=== PATIENT | male | born 1960 | race Caucasian/White ===

== ENCOUNTER 2019-05-01 14:02 | Observation (INO) | payer MEDICAID ==
[~2019-05-01 14:02] MED LIST: Insulin Aspart 100 Units/ML 3 ML Pen SUBCUT SCH
[2019-05-01] MEDS ORDERED: Sodium Chloride 0.9% 1,000 ML IV ONE (14:42)
--- NOTE | 2019-05-01 14:57 | EDM.PDOC ---
ED HPI GENERAL MEDICAL PROBLEM - General Chief Complaint: General Stated Complaint: CAN NOT STAY AWAKE Time Seen by Provider: 05/01/19 14:22 Source of Information: Reports: Patient, Family History Limitations: Reports: No Limitations - History of Present Illness INITIAL COMMENTS - FREE TEXT/NARRATIVE: HISTORY AND PHYSICAL: History of present illness: Patient is a 58-year-old male presents to the ED today with concerns of excessive tiredness and wanting to sleep often 1 month. states that they had just came from [facility] and had to stop every 5-6 hours so patient could now. states that this is very unusual for patient and he is usually able to get the trip done without having to stop. states she has noticed in the past month he has had increase in tiredness regardless of how much caffeine or supplements use to stay awake. states that she will be talking to him and that he will fall asleep. states he hasn't been wanting to go outside because he has been tired and needing to sleep all the time. Patient does complain of right hip pain and some calf cramping. states patient has a history of tardive dyskinesia due to chronic antipsychotic use for bipolar. Patient's medications have been changed many years ago but he has a resulting tremor in his right arm and some movements. Patient has a history of T2DM, medication controlled, deny any other health history or any other concerns at this time. Patient does admit to drinking 12 cans of Sprite a day and over the past 2 days has had an increase in caffeine intake due to the road trip. Patient denies fever, chills, chest pain, shortness of breath, or cough. Denies headache, neck stiff ness, change in vision, syncope, or near syncope. Denies nausea, vomiting, abdominal pain, diarrhea, constipation, or dysuria. Has not noted any blood in urine or stool. Patient has been eating and drinking appropriately. Review of systems: As per history of present illness and below otherwise all systems reviewed and negative. Past medical history: As per history of present illness and as reviewed below otherwise noncontributory. Surgical history: As per history of present illness and as reviewed below otherwise noncontributory. Social history: See social history for further information Family history: As per history of present illness and as reviewed below otherwise noncontributory. Physical exam: General: Patient is alert, oriented, and in no acute distress. Patient laying comfortably on exam table, occasionally falling asleep during conversation. HEENT: Atraumatic, normocephalic, pupils equal and reactive bilaterally, negative for conjunctival pallor or scleral icterus, mucous membranes dry, TMs normal bilaterally, throat clear, neck supple, nontender, trachea midline. No drooling or trismus noted. No meningeal signs. No hot potato voice noted. Lungs: Clear to auscultation, breath sounds equal bilaterally, chest nontender. Heart: Obese, S1S2, regular rate and rhythm without overt murmur Abdomen: Soft, nondistended, nontender. Negative for masses or hepatosplenomegaly. Negative for costovertebral tenderness. Pelvis: Stable nontender. Genitourinary: Deferred. Rectal: Deferred. Skin: Intact, warm, dry. No lesions or rashes noted. Extremities: Atraumatic, negative for cords or calf pain. Neurovascular unremarkable. Mild pain with ROM of right hip but intact strength and ROM Neuro: Awake, alert, oriented. Cranial nerves II through XII unremarkable. Cerebellum unremarkable. Motor and sensory unremarkable throughout. Exam nonfocal. Notes: Dr. Carmichael verbally involved in patient care. Dr. Pro consulted on patient will admit to observation. Voices understanding and is agreeable to plan of care. Denies any further questions or concerns at this time. Diagnostics: CBC, CMP, UA, troponin, EKG, head CT, chest x-ray, orthostatic vitals, CPK, hip XR, magnesium Therapeutics: Saline, K rider, K PO, Zofran Impression: Hypokalemia Dehydration Plan: 1. Admit to observation to Dr. Pro Definitive disposition and diagnosis as appropriate pending reevaluation and review of above. right hip Pain Score (Numeric/FACES): 5 - Related Data Allergies Allergy/AdvReac Type Severity Reaction Status Date / Time No Known Allergies Allergy Verified 05/01/19 14:24 Home Meds: Home Meds Acetaminophen 1,000 mg PO Q8H PRN 05/01/19 [History] Albuterol Sulfate [Proair Hfa] 2 puff INH Q6H PRN 05/01/19 [History] Aspirin [Adult Low Dose Aspirin EC] 81 mg PO DAILY 05/01/19 [History] Divalproex Sodium [Depakote] 05/01/19 [History] FLUoxetine HCl [Prozac] 20 mg PO BEDTIME 05/01/19 [History] Famotidine 20 mg PO BID 05/01/19 [History] Gabapentin [Neurontin] 600 mg PO BEDTIME 05/01/19 [History] Losartan [Cozaar] 100 mg PO DAILY 05/01/19 [History] Valbenazine Tosylate [Ingrezza] 05/01/19 [History] amLODIPine Besylate [Norvasc] 10 mg PO DAILY 05/01/19 [History] atorvaSTATin [Lipitor] 40 mg PO DAILY 05/01/19 [History] hydrOXYzine HCl [hydrOXYzine] 25 mg PO TID PRN 05/01/19 [History] hydroCHLOROthiazide [Hydrochlorothiazide] 50 mg PO DAILY 05/01/19 [History] metFORMIN [Glucophage] 500 mg PO BIDMEALS 05/01/19 [History] risperiDONE [Risperdal] 05/01/19 [History] ED ROS GENERAL - Review of Systems Review Of Systems: ROS reveals no pertinent complaints other than HPI. ED EXAM, GENERAL - Physical Exam Exam: See Below (see dictation) Course - Vital Signs Last Recorded V/S: Last Vital Signs Temp 35.7 C 05/01/19 14:25 Pulse 65 05/01/19 14:25 Resp 18 05/01/19 14:25 BP 148/82 H 05/01/19 14:25 Pulse Ox 95 05/01/19 14:25 Orthostatic Blood Pressure [ 149/88 Standing] Orthostatic Blood Pressure [ 163/100 Sitting] Orthostatic Blood Pressure [ 162/96 Supine] - Orders/Labs/Meds Orders: Active Orders 24 hr Category Date Time Status Admission Status [Patient Status] [ADT] Stat ADT 05/01/19 16:44 Ordered EKG Documentation Completion [RC] STAT Care 05/01/19 14:23 Active Glucose [Blood Glucose Check, Bedside] [RC] ONETIME Care 05/01/19 14:28 Active Orthostatic Vital Signs [RC] ASDIRECTED Care 05/01/19 14:43 Active Potassium Chloride Riders [KCL 40 MEQ in Water 100 ML] Med 05/01/19 15:39 Active 40 meq Premix Bag 1 bag IV ONETIME Sodium Chloride 0.9% [Normal Saline] 1,000 ml Med 05/01/19 16:00 Active IV ASDIRECTED Medication Orders Potassium Chloride 40 meq/ (Premix) 100 mls @ 25 mls/hr IV ONETIME ONE Stop: 05/01/19 19:38 Last Admin: 05/01/19 16:05 Dose: 25 mls/hr Sodium Chloride (Normal Saline) 1,000 mls @ 125 mls/hr IV ASDIRECTED MAR Last Admin: 05/01/19 16:05 Dose: 125 mls/hr Labs: Laboratory Tests 05/01/19 05/01/19 05/01/19 Range/Units 14:28 14:32 14:36 WBC 9.23 (4.0-11.0) K/uL RBC 5.28 (4.50-5.90) M/uL Hgb 14.7 (13.0-17.0) g/dL Hct 43.1 (38.0-50.0) % MCV 81.6 (80.0-98.0) fL MCH 27.8 (27.0-32.0) pg MCHC 34.1 (31.0-37.0) g/dL RDW Std Deviation 41.7 (28.0-62.0) fl RDW Coeff of Raffi 14 (11.0-15.0) % Plt Count 232 (150-400) K/uL MPV 10.00 (7.40-12.00) fL Neut % (Auto) 69.5 (48.0-80.0) % Lymph % (Auto) 16.7 (16.0-40.0) % Tift % (Auto) 8.2 (0.0-15.0) % Eos % (Auto) 5.4 (0.0-7.0) % Baso % (Auto) 0.2 (0.0-1.5) % Neut # (Auto) 6.4 H (1.4-5.7) K/uL Lymph # (Auto) 1.5 (0.6-2.4) K/uL Tift # (Auto) 0.8 (0.0-0.8) K/uL Eos # (Auto) 0.5 (0.0-0.7) K/uL Baso # (Auto) 0.0 (0.0-0.1) K/uL Nucleated RBC % 0.0 /100WBC Nucleated RBCs # 0 K/uL Sodium (136-148) mmol/L Potassium (3.5-5.1) mmol/L Chloride (98-107) mmol/L Carbon Dioxide (21.0-32.0) mmol/L BUN (7.0-18.0) mg/dL Creatinine (0.8-1.3) mg/dL Est Cr Clr Drug Dosing mL/min Estimated GFR (MDRD) ml/min Glucose (74-106) mg/dL POC Glucose 105 (60-110) mg/dL Calcium (8.5-10.1) mg/dL Magnesium 2.1 (1.8-2.4) mg/dL Total Bilirubin (0.2-1.0) mg/dL AST (15-37) IU/L ALT (14-63) IU/L Alkaline Phosphatase (46-116) U/L Creatine Kinase (26-308) U/L Troponin I (0.000-0.056) ng/mL Total Protein (6.4-8.2) g/dL Albumin (3.4-5.0) g/dL Globulin (2.6-4.0) g/dL Albumin/Globulin Ratio (0.9-1.6) Urine Color Urine Appearance Urine pH (5.0-8.0) Ur Specific [place] (1.001-1.035) Urine Protein (NEGATIVE) mg/dL Urine Glucose (UA) (NEGATIVE) mg/dL Urine Ketones (NEGATIVE) mg/dL Urine Occult Blood (NEGATIVE) Urine Nitrite (NEGATIVE) Urine Bilirubin (NEGATIVE) Urine Urobilinogen (<2.0) EU/dL Ur Leukocyte Esterase (NEGATIVE) 05/01/19 05/01/19 05/01/19 Range/Units 14:36 14:36 15:55 WBC (4.0-11.0) K/uL RBC (4.50-5.90) M/uL Hgb (13.0-17.0) g/dL Hct (38.0-50.0) % MCV (80.0-98.0) fL MCH (27.0-32.0) pg MCHC (31.0-37.0) g/dL RDW Std Deviation (28.0-62.0) fl RDW Coeff of Raffi (11.0-15.0) % Plt Count (150-400) K/uL MPV (7.40-12.00) fL Neut % (Auto) (48.0-80.0) % Lymph % (Auto) (16.0-40.0) % Tift % (Auto) (0.0-15.0) % Eos % (Auto) (0.0-7.0) % Baso % (Auto) (0.0-1.5) % Neut # (Auto) (1.4-5.7) K/uL Lymph # (Auto) (0.6-2.4) K/uL Tift # (Auto) (0.0-0.8) K/uL Eos # (Auto) (0.0-0.7) K/uL Baso # (Auto) (0.0-0.1) K/uL Nucleated RBC % /100WBC Nucleated RBCs # K/uL Sodium 139 (136-148) mmol/L Potassium 2.7 L (3.5-5.1) mmol/L Chloride 99 (98-107) mmol/L Carbon Dioxide 32.0 (21.0-32.0) mmol/L BUN 16 (7.0-18.0) mg/dL Creatinine 1.2 (0.8-1.3) mg/dL Est Cr Clr Drug Dosing 81.17 mL/min Estimated GFR (MDRD) > 60.0 ml/min Glucose 106 (74-106) mg/dL POC Glucose (60-110) mg/dL Calcium 9.1 (8.5-10.1) mg/dL Magnesium (1.8-2.4) mg/dL Total Bilirubin 0.8 (0.2-1.0) mg/dL AST 17 (15-37) IU/L ALT 31 (14-63) IU/L Alkaline Phosphatase 60 (46-116) U/L Creatine Kinase 86 (26-308) U/L Troponin I < 0.050 (0.000-0.056) ng/mL Total Protein 7.1 (6.4-8.2) g/dL Albumin 3.7 (3.4-5.0) g/dL Globulin 3.4 (2.6-4.0) g/dL Albumin/Globulin Ratio 1.1 (0.9-1.6) Urine Color YELLOW Urine Appearance CLEAR Urine pH 6.0 (5.0-8.0) Ur Specific [place] 1.010 (1.001-1.035) Urine Protein NEGATIVE (NEGATIVE) mg/dL Urine Glucose (UA) NEGATIVE (NEGATIVE) mg/dL Urine Ketones NEGATIVE (NEGATIVE) mg/dL Urine Occult Blood NEGATIVE (NEGATIVE) Urine Nitrite NEGATIVE (NEGATIVE) Urine Bilirubin NEGATIVE (NEGATIVE) Urine Urobilinogen 0.2 (<2.0) EU/dL Ur Leukocyte Esterase NEGATIVE (NEGATIVE) Meds: Medications Generic Name Dose Route Start Last Admin Trade Name Freq PRN Reason Stop Dose Admin Potassium Chloride 40 meq/ 100 mls @ 25 mls/hr 05/01/19 15:39 05/01/19 16:05 Premix IV 05/01/19 19:38 25 mls/hr ONETIME ONE Administration Sodium Chloride 1,000 mls @ 125 mls/hr 05/01/19 16:00 05/01/19 16:05 Normal Saline IV 125 mls/hr ASDIRECTED MAR Administration Discontinued Medications Generic Name Dose Route Start Last Admin Trade Name Freq PRN Reason Stop Dose Admin Sodium Chloride 1,000 mls @ 999 mls/hr 05/01/19 14:42 05/01/19 14:51 Normal Saline IV 05/01/19 15:42 999 mls/hr BOLUS ONE Administration Ondansetron HCl 4 mg 05/01/19 15:55 05/01/19 16:05 Zofran Odt PO 05/01/19 15:56 4 mg ONETIME ONE Administration Potassium Chloride 40 meq 05/01/19 15:55 05/01/19 16:05 Potassium Chloride PO 05/01/19 15:56 40 meq ONETIME ONE Administration Departure - Departure Time of Disposition: 16:46 Disposition: Refer to Observation Clinical Impression: Hypokalemia, Dehydration - Discharge Information Forms: ED Department Discharge - My Orders Last 24 Hours: My Active Orders 05/01/19 14:23 EKG Documentation Completion [RC] STAT 05/01/19 14:28 Glucose [Blood Glucose Check, Bedside] [RC] ONETIME 05/01/19 14:43 Orthostatic Vital Signs [RC] ASDIRECTED 05/01/19 15:39 Potassium Chloride Riders [KCL 40 MEQ in Water 100 ML] 40 meq Premix Bag 1 bag IV ONETIME 05/01/19 16:00 Sodium Chloride 0.9% [Normal Saline] 1,000 ml IV ASDIRECTED 05/01/19 16:44 Admission Status [Patient Status] [ADT] Stat - Assessment/Plan Last 24 Hours: My Active Orders 05/01/19 14:23 EKG Documentation Completion [RC] STAT 05/01/19 14:28 Glucose [Blood Glucose Check, Bedside] [RC] ONETIME 05/01/19 14:43 Orthostatic Vital Signs [RC] ASDIRECTED 05/01/19 15:39 Potassium Chloride Riders [KCL 40 MEQ in Water 100 ML] 40 meq Premix Bag 1 bag IV ONETIME 05/01/19 16:00 Sodium Chloride 0.9% [Normal Saline] 1,000 ml IV ASDIRECTED 05/01/19 16:44 Admission Status [Patient Status] [ADT] Stat
[2019-05-01 15:38] LABS: CHLORIDE,CL 99 mmol/L (98-107); SODIUM,NA 139 mmol/L (136-148)
[2019-05-01] MEDS ORDERED: Potassium Chloride Riders 40 MEQ in Premix Bag 1 BAG IV ONE (15:39)
[2019-05-01] MEDS ORDERED: Ondansetron 4 MG Tab.DIS PO ONE (15:55)
[2019-05-01] MEDS ORDERED: Potassium Chloride 10% 20 MEQ/15 ML Soln 30 ML UD Cup PO ONE (15:55)
[2019-05-01] MEDS ORDERED: Sodium Chloride 0.9% 1,000 ML IV SCH (16:00)
--- NOTE | 2019-05-01 16:00 | CT ---
INDICATION: Difficulty staying awake for about 2 months. Feels exhausted. TECHNIQUE: Scanning of the head was performed without IV contrast material. Coronal and sagittal reconstructions were obtained. COMPARISON: None. FINDINGS: No acute hemorrhage, parenchymal attenuation abnormality, or mass effect is demonstrated. Differentiation between the cordero matter and white matter is preserved. The ventricles and other subarachnoid spaces are within normal limits. Numerous falcine and tentorial calcifications are noted and/or insignificant. A dominant left vertebral artery is noted along with a tortuous basilar artery. No calvarial abnormality is evident. The visualized paranasal and mastoid sinuses are clear. IMPRESSION: Negative noncontrast head CT. Please note that all CT scans at this facility use dose modulation, iterative reconstruction, and/or weight-based dosing when appropriate to reduce radiation dose to as low as reasonably achievable. Dictated by Ricco Byers MD @ May 01 2019 3:50PM Signed by Dr. Ricco Byers @ May 01 2019 3:58PM
--- NOTE | 2019-05-01 16:17 | CR ---
INDICATION: Right hip pain. TECHNIQUE: Two views of the right hip. COMPARISON: None. FINDINGS: Normal joint space. No chondrocalcinosis or erosive change. IMPRESSION: Negative right hip. Dictated by Ricco Byers MD @ May 01 2019 4:16PM Signed by Dr. Ricco Byers @ May 01 2019 4:16PM
--- NOTE | 2019-05-01 16:17 | CR ---
INDICATION: Fatigue. TECHNIQUE: PA image of the chest. COMPARISON: None. FINDINGS: Lungs and pleural spaces clear. Heart, mediastinum and pulmonary vessels normal. No significant osseous abnormality. IMPRESSION: Negative chest. Dictated by Ricco Byers MD @ May 01 2019 4:14PM Signed by Dr. Ricco Byers @ May 01 2019 4:15PM
[2019-05-01] MEDS ORDERED: Acetaminophen 500 MG Tab PO PRN (19:03)
[2019-05-01] MEDS ORDERED: Albuterol HFA 18 Gm Inhaler INH PRN (19:04)
[2019-05-01] MEDS ORDERED: hydrOXYzine HCl 25 MG Tab PO PRN (19:10)
[2019-05-01] MEDS: metFORMIN 500 MG Tab PO SCH (20:34)
[2019-05-01] MEDS: atorvaSTATin 40 MG Tab PO SCH (20:34)
[2019-05-01] MEDS: Famotidine 20 MG Tab PO SCH (20:34)
[2019-05-01] MEDS ORDERED: Gabapentin 300 MG Cap PO SCH (21:00)
[2019-05-01] MEDS ORDERED: FLUoxetine 20 MG Cap PO SCH (21:00)
[2019-05-01 22:33] LABS: CHLORIDE,CL 103 mmol/L (98-107); SODIUM,NA 140 mmol/L (136-148)
[2019-05-01] MEDS ORDERED: Potassium Chloride 20 MEQ Tab.ER PO ONE (23:34)
--- NOTE | 2019-05-01 23:40 | PCM.HP ---
H&P History of Present Illness - General Date of Service: 05/01/19 Admit Problem/Dx: Admission Diagnosis/Problem Admission Diagnosis/Problem Hypokalemia - History of Present Illness Initial Comments - Free Text/Narative: 58 yo male with pmh of HTN, Bipolar disorder, and DM who presents to the ED with complaints of muscle cramps. Patient also complaining of excessive sleepiness during the day for the past several months. He denies any fevers, chills, or shortness of breath. He denies any new medicine changes except for Ingrezza which was added several months ago. right hip Pain Score (Numeric/FACES): 5 - Related Data Allergies/Adverse Reactions: Allergies Allergy/AdvReac Type Severity Reaction Status Date / Time No Known Allergies Allergy Verified 05/01/19 14:24 Home Medications: Home Meds Acetaminophen 1,000 mg PO Q8H PRN 05/01/19 [History] Albuterol Sulfate [Proair Hfa] 2 puff INH Q6H PRN 05/01/19 [History] Aspirin [Adult Low Dose Aspirin EC] 81 mg PO DAILY 05/01/19 [History] Divalproex Sodium [Depakote] 05/01/19 [History] FLUoxetine HCl [Prozac] 20 mg PO BEDTIME 05/01/19 [History] Famotidine 20 mg PO BID 05/01/19 [History] Gabapentin [Neurontin] 600 mg PO BEDTIME 05/01/19 [History] Losartan [Cozaar] 100 mg PO DAILY 05/01/19 [History] Valbenazine Tosylate [Ingrezza] 80 mg PO BEDTIME 05/01/19 [History] amLODIPine Besylate [Norvasc] 10 mg PO DAILY 05/01/19 [History] atorvaSTATin [Lipitor] 40 mg PO DAILY 05/01/19 [History] hydrOXYzine HCl [hydrOXYzine] 25 mg PO TID PRN 05/01/19 [History] hydroCHLOROthiazide [Hydrochlorothiazide] 50 mg PO DAILY 05/01/19 [History] metFORMIN [Glucophage] 500 mg PO BIDMEALS 05/01/19 [History] risperiDONE [Risperdal] 05/01/19 [History] Past Medical History HEENT History: Reports: Other (See Below) Other HEENT History: hypersenstive retinopathy Cardiovascular History: Reports: Hypertension Respiratory History: Reports: Asthma Gastrointestinal History: Reports: GERD Genitourinary History: Reports: Other (See Below) Other Genitourinary History: Chronic Kidney Disease Musculoskeletal History: Reports: Back Pain, Chronic, Other (See Below) Other Musculoskeletal History: Right hip pain, right knee apin Neurological History: Reports: Other (See Below) Other Neuro History: Tremor Psychiatric History: Reports: Bipolar Endocrine/Metabolic History: Reports: Diabetes, Type II, Obesity/BMI 30+ Hematologic History: Reports: Other (See Below) Other Hematologic History: Hyperlipidemia Immunologic History: Reports: None Oncologic (Cancer) History: Reports: None Dermatologic History: Reports: Other (See Below) Other Dermatologic History: pruirtis of skin - Past Surgical History Head Surgeries/Procedures: Reports: None HEENT Surgical History: Reports: None Cardiovascular Surgical History: Reports: None Respiratory Surgical History: Reports: None GI Surgical History: Reports: None Male Surgical History: Reports: None Endocrine Surgical History: Reports: None Neurological Surgical History: Reports: None Musculoskeletal Surgical History: Reports: None Oncologic Surgical History: Reports: None Dermatological Surgical History: Reports: None Social & Family History - Family History Family Medical History: Noncontributory - Tobacco Use Smoking Status *Q: Former Smoker Used Tobacco, but Quit: Yes Month/Year Tobacco Last Used: 31 Second Hand Smoke Exposure: Yes - Caffeine Use Caffeine Use: Reports: Soda - Recreational Drug Use Recreational Drug Use: No H&P Review of Systems - Review of Systems: Review Of Systems: ROS reveals no pertinent complaints other than HPI. Exam - Exam Exam: See Below - Vital Signs Vital Signs: Last Vital Signs Temp 36.6 C 05/01/19 20:00 Pulse 61 05/01/19 20:00 Resp 18 05/01/19 20:00 BP 140/92 H 05/01/19 20:00 Pulse Ox 95 05/01/19 20:00 Orthostatic Blood Pressure [ 149/88 Standing] Orthostatic Blood Pressure [ 163/100 Sitting] Orthostatic Blood Pressure [ 162/96 Supine] Weight: 119.93 kg - Exam General: Alert, Oriented HEENT: Mucosa Moist & Ina Lungs: Clear to Auscultation, Normal Respiratory Effort Cardiovascular: Regular Rate, Regular Rhythm GI/Abdominal Exam: Soft, Non-Tender Extremities: Non-Tender, No Pedal Edema Skin: Warm, Dry, Intact Neurological: Other (tremor of arms) - Patient Data Lab Results Last 24 hrs: Laboratory Results - last 24 hr 05/01/19 05/01/19 05/01/19 Range/Units 14:28 14:32 14:36 WBC 9.23 (4.0-11.0) K/uL RBC 5.28 (4.50-5.90) M/uL Hgb 14.7 (13.0-17.0) g/dL Hct 43.1 (38.0-50.0) % MCV 81.6 (80.0-98.0) fL MCH 27.8 (27.0-32.0) pg MCHC 34.1 (31.0-37.0) g/dL RDW Std Deviation 41.7 (28.0-62.0) fl RDW Coeff of Raffi 14 (11.0-15.0) % Plt Count 232 (150-400) K/uL MPV 10.00 (7.40-12.00) fL Neut % (Auto) 69.5 (48.0-80.0) % Lymph % (Auto) 16.7 (16.0-40.0) % Crook % (Auto) 8.2 (0.0-15.0) % Eos % (Auto) 5.4 (0.0-7.0) % Baso % (Auto) 0.2 (0.0-1.5) % Neut # (Auto) 6.4 H (1.4-5.7) K/uL Lymph # (Auto) 1.5 (0.6-2.4) K/uL Crook # (Auto) 0.8 (0.0-0.8) K/uL Eos # (Auto) 0.5 (0.0-0.7) K/uL Baso # (Auto) 0.0 (0.0-0.1) K/uL Nucleated RBC % 0.0 /100WBC Nucleated RBCs # 0 K/uL Sodium (136-148) mmol/L Potassium (3.5-5.1) mmol/L Chloride (98-107) mmol/L Carbon Dioxide (21.0-32.0) mmol/L BUN (7.0-18.0) mg/dL Creatinine (0.8-1.3) mg/dL Est Cr Clr Drug Dosing mL/min Estimated GFR (MDRD) ml/min Glucose (74-106) mg/dL POC Glucose 105 (60-110) mg/dL Calcium (8.5-10.1) mg/dL Magnesium 2.1 (1.8-2.4) mg/dL Total Bilirubin (0.2-1.0) mg/dL AST (15-37) IU/L ALT (14-63) IU/L Alkaline Phosphatase (46-116) U/L Creatine Kinase (26-308) U/L Troponin I (0.000-0.056) ng/mL Total Protein (6.4-8.2) g/dL Albumin (3.4-5.0) g/dL Globulin (2.6-4.0) g/dL Albumin/Globulin Ratio (0.9-1.6) Urine Color Urine Appearance Urine pH (5.0-8.0) Ur Specific [place] (1.001-1.035) Urine Protein (NEGATIVE) mg/dL Urine Glucose (UA) (NEGATIVE) mg/dL Urine Ketones (NEGATIVE) mg/dL Urine Occult Blood (NEGATIVE) Urine Nitrite (NEGATIVE) Urine Bilirubin (NEGATIVE) Urine Urobilinogen (<2.0) EU/dL Ur Leukocyte Esterase (NEGATIVE) 05/01/19 05/01/19 05/01/19 Range/Units 14:36 14:36 15:55 WBC (4.0-11.0) K/uL RBC (4.50-5.90) M/uL Hgb (13.0-17.0) g/dL Hct (38.0-50.0) % MCV (80.0-98.0) fL MCH (27.0-32.0) pg MCHC (31.0-37.0) g/dL RDW Std Deviation (28.0-62.0) fl RDW Coeff of Raffi (11.0-15.0) % Plt Count (150-400) K/uL MPV (7.40-12.00) fL Neut % (Auto) (48.0-80.0) % Lymph % (Auto) (16.0-40.0) % Crook % (Auto) (0.0-15.0) % Eos % (Auto) (0.0-7.0) % Baso % (Auto) (0.0-1.5) % Neut # (Auto) (1.4-5.7) K/uL Lymph # (Auto) (0.6-2.4) K/uL Crook # (Auto) (0.0-0.8) K/uL Eos # (Auto) (0.0-0.7) K/uL Baso # (Auto) (0.0-0.1) K/uL Nucleated RBC % /100WBC Nucleated RBCs # K/uL Sodium 139 (136-148) mmol/L Potassium 2.7 L (3.5-5.1) mmol/L Chloride 99 (98-107) mmol/L Carbon Dioxide 32.0 (21.0-32.0) mmol/L BUN 16 (7.0-18.0) mg/dL Creatinine 1.2 (0.8-1.3) mg/dL Est Cr Clr Drug Dosing 81.17 mL/min Estimated GFR (MDRD) > 60.0 ml/min Glucose 106 (74-106) mg/dL POC Glucose (60-110) mg/dL Calcium 9.1 (8.5-10.1) mg/dL Magnesium (1.8-2.4) mg/dL Total Bilirubin 0.8 (0.2-1.0) mg/dL AST 17 (15-37) IU/L ALT 31 (14-63) IU/L Alkaline Phosphatase 60 (46-116) U/L Creatine Kinase 86 (26-308) U/L Troponin I < 0.050 (0.000-0.056) ng/mL Total Protein 7.1 (6.4-8.2) g/dL Albumin 3.7 (3.4-5.0) g/dL Globulin 3.4 (2.6-4.0) g/dL Albumin/Globulin Ratio 1.1 (0.9-1.6) Urine Color YELLOW Urine Appearance CLEAR Urine pH 6.0 (5.0-8.0) Ur Specific [place] 1.010 (1.001-1.035) Urine Protein NEGATIVE (NEGATIVE) mg/dL Urine Glucose (UA) NEGATIVE (NEGATIVE) mg/dL Urine Ketones NEGATIVE (NEGATIVE) mg/dL Urine Occult Blood NEGATIVE (NEGATIVE) Urine Nitrite NEGATIVE (NEGATIVE) Urine Bilirubin NEGATIVE (NEGATIVE) Urine Urobilinogen 0.2 (<2.0) EU/dL Ur Leukocyte Esterase NEGATIVE (NEGATIVE) 05/01/19 Range/Units 22:10 WBC (4.0-11.0) K/uL RBC (4.50-5.90) M/uL Hgb (13.0-17.0) g/dL Hct (38.0-50.0) % MCV (80.0-98.0) fL MCH (27.0-32.0) pg MCHC (31.0-37.0) g/dL RDW Std Deviation (28.0-62.0) fl RDW Coeff of Raffi (11.0-15.0) % Plt Count (150-400) K/uL MPV (7.40-12.00) fL Neut % (Auto) (48.0-80.0) % Lymph % (Auto) (16.0-40.0) % Crook % (Auto) (0.0-15.0) % Eos % (Auto) (0.0-7.0) % Baso % (Auto) (0.0-1.5) % Neut # (Auto) (1.4-5.7) K/uL Lymph # (Auto) (0.6-2.4) K/uL Crook # (Auto) (0.0-0.8) K/uL Eos # (Auto) (0.0-0.7) K/uL Baso # (Auto) (0.0-0.1) K/uL Nucleated RBC % /100WBC Nucleated RBCs # K/uL Sodium 140 (136-148) mmol/L Potassium 2.9 L (3.5-5.1) mmol/L Chloride 103 (98-107) mmol/L Carbon Dioxide 30.9 (21.0-32.0) mmol/L BUN 13 (7.0-18.0) mg/dL Creatinine 1.2 (0.8-1.3) mg/dL Est Cr Clr Drug Dosing 81.17 mL/min Estimated GFR (MDRD) > 60.0 ml/min Glucose 203 H (74-106) mg/dL POC Glucose (60-110) mg/dL Calcium 8.3 L (8.5-10.1) mg/dL Magnesium (1.8-2.4) mg/dL Total Bilirubin (0.2-1.0) mg/dL AST (15-37) IU/L ALT (14-63) IU/L Alkaline Phosphatase (46-116) U/L Creatine Kinase (26-308) U/L Troponin I (0.000-0.056) ng/mL Total Protein (6.4-8.2) g/dL Albumin (3.4-5.0) g/dL Globulin (2.6-4.0) g/dL Albumin/Globulin Ratio (0.9-1.6) Urine Color Urine Appearance Urine pH (5.0-8.0) Ur Specific [place] (1.001-1.035) Urine Protein (NEGATIVE) mg/dL Urine Glucose (UA) (NEGATIVE) mg/dL Urine Ketones (NEGATIVE) mg/dL Urine Occult Blood (NEGATIVE) Urine Nitrite (NEGATIVE) Urine Bilirubin (NEGATIVE) Urine Urobilinogen (<2.0) EU/dL Ur Leukocyte Esterase (NEGATIVE) Result Diagrams: 05/02/19 04:37 05/02/19 04:37 Problem List Initiated/Reviewed/Updated: Yes Orders Last 24hrs: Active Orders 24 hr Category Date Time Status Admission Status [Patient Status] [ADT] Stat ADT 05/01/19 16:44 Active Accu Check [Blood Glucose Check, Bedside] [RC] TIDAC Care 05/01/19 18:56 Active Antiembolic Devices [RC] PER UNIT ROUTINE Care 05/01/19 23:35 Ordered EKG Documentation Completion [RC] STAT Care 05/01/19 14:23 Active Orthostatic Vital Signs [RC] ASDIRECTED Care 05/01/19 14:43 Active Oxygen Therapy [RC] PRN Care 05/01/19 23:35 Ordered Telemetry Monitoring [Cardiac Monitoring] [RC] Q8H Care 05/01/19 18:48 Active Up ad Sherin [RC] ASDIRECTED Care 05/01/19 23:35 Ordered VTE/DVT Education [RC] PER UNIT ROUTINE Care 05/01/19 23:35 Ordered Vital Signs [RC] Q4H Care 05/01/19 23:35 Ordered [employer] Diet [DIET] Diet 05/01/19 Dinner Active BASIC METABOLIC PANEL,BMP [CHEM] AM Lab 05/02/19 05:11 Ordered CBC WITH AUTO DIFF [HEME] AM Lab 05/02/19 05:11 Ordered Acetaminophen [Tylenol Extra Strength] Med 05/01/19 19:03 Active 1,000 mg PO Q8H PRN Albuterol [Ventolin HFA] Med 05/01/19 19:04 Active 0 gm INH Q6H PRN Aspirin [Halfprin] Med 05/02/19 09:00 Active 81 mg PO DAILY FLUoxetine [PROzac] Med 05/01/19 21:00 Active 20 mg PO BEDTIME Famotidine [Pepcid] Med 05/01/19 21:00 Active 20 mg PO BID Gabapentin [Neurontin] Med 05/01/19 21:00 Active 600 mg PO BEDTIME Insulin Aspart [NovoLOG] Med 05/02/19 07:30 Active See Protocol SUBCUT TIDAC Losartan [Cozaar] Med 05/02/19 09:00 Active 100 mg PO DAILY Potassium Chloride [Klor-Con M20] Med 05/01/19 23:34 Once 40 meq PO ONETIME ONE Sodium Chloride 0.9% with KCl 40 mEq @ Enter Rate (1000 Med 05/01/19 23:45 Ordered mL) Sodium Chloride 0.9% with KCl [Normal Saline with 40 mEq KCl] 1,000 ml IV ASDIRECTED amLODIPine [Norvasc] Med 05/02/19 09:00 Active 10 mg PO DAILY atorvaSTATin [Lipitor] Med 05/01/19 19:15 Active 40 mg PO DAILY hydrOXYzine HCl [Atarax] Med 05/01/19 19:10 Active 25 mg PO TID PRN metFORMIN [Glucophage] Med 05/01/19 19:15 Active 500 mg PO BIDMEALS Sequential Compression Device [OM.PC] Per Unit Routine Oth 05/01/19 23:35 Ordered Resuscitation Status Routine Resus Stat 05/01/19 23:35 Ordered Medication Orders Acetaminophen (Tylenol Extra Strength) 1,000 mg PO Q8H PRN PRN Reason: PAIN Albuterol (Ventolin Hfa) 0 gm INH Q6H PRN PRN Reason: SHORTNESS OF BREATH Amlodipine Besylate (Norvasc) 10 mg PO DAILY MAR Aspirin (Halfprin) 81 mg PO DAILY MAR Atorvastatin Calcium (Lipitor) 40 mg PO DAILY MAR Last Admin: 05/01/19 20:34 Dose: 40 mg Famotidine (Pepcid) 20 mg PO BID [facility] Last Admin: 05/01/19 20:34 Dose: 20 mg Fluoxetine HCl (Prozac) 20 mg PO BEDTIME [facility] Last Admin: 05/01/19 20:34 Dose: 20 mg Gabapentin (Neurontin) 600 mg PO BEDTIME [facility] Last Admin: 05/01/19 20:34 Dose: 600 mg Hydroxyzine HCl (Atarax) 25 mg PO TID PRN PRN Reason: ITCHING/ANXIETY Potassium Chloride/Sodium Chloride (Normal Saline With 40 Meq Kcl) 1,000 mls @ 150 mls/hr IV ASDIRECTED [facility] Stop: 05/02/19 06:24 Insulin Aspart (Novolog) 0 unit SUBCUT TIDAC [facility]; Protocol Losartan Potassium (Cozaar) 100 mg PO DAILY [facility] Metformin HCl (Glucophage) 500 mg PO BIDMEALS [facility] Last Admin: 05/01/19 20:34 Dose: 500 mg Potassium Chloride (Klor-Con M20) 40 meq PO ONETIME ONE Stop: 05/01/19 23:35 Assessment/Plan Comment:: 58 yo male admitted with hypokalemia. We replaced with IV and oral supplementation and this morning his potassium is 3.5. He is requesting discharge. He was instructed to stop taking his HCTZ and given several days of oral potassium supplementation. He is to follow up with [facility].
[2019-05-01] MEDS ORDERED: Sodium Chloride 0.9% with KCl 1,000 ML IV SCH (23:45)
[2019-05-02 05:37] LABS: CHLORIDE,CL 107 mmol/L (98-107); SODIUM,NA 144 mmol/L (136-148)
[2019-05-02] MEDS ORDERED: Insulin Aspart 100 Units/ML 3 ML Pen SUBCUT SCH (07:30)
[2019-05-02] MEDS ORDERED: amLODIPine 5 MG Tab PO SCH (09:00)
[2019-05-02] MEDS ORDERED: Aspirin 81 MG Tab.EC PO SCH (09:00)
[2019-05-02] MEDS ORDERED: Losartan 50 MG Tab PO SCH (09:00)
[2019-05-02] MEDS: atorvaSTATin 40 MG Tab PO SCH (09:10)
[2019-05-02] MEDS: Famotidine 20 MG Tab PO SCH (09:10)
[2019-05-02] MEDS: metFORMIN 500 MG Tab PO SCH (09:11)
== END 2019-05-02 10:20 | disposition home or self-care (01) ==
LOC: MW.ED 14:02 → MW.MS 17:42 → UNDOADMOB 17:42
PROVIDERS: ADMIT Internal Medicine; ATTEND Internal Medicine
DX: E87.6 Hypokalemia (principal); E86.0 Dehydration; F31.9 Bipolar disorder, unspecified; J45.909 Unspecified asthma, uncomplicated; K21.9 Gastro-esophageal reflux disease without esophagitis; I12.9 Hypertensive chronic kidney disease with stage 1 through stage 4 chronic kidney disease, or unspecified chronic kidney disease; N18.9 Chronic kidney disease, unspecified; G89.29 Other chronic pain; M54.9 Dorsalgia, unspecified; E11.22 Type 2 diabetes mellitus with diabetic chronic kidney disease; E78.5 Hyperlipidemia, unspecified; E66.9 Obesity, unspecified; Z68.33 Body mass index [BMI] 33.0-33.9, adult; Z87.891 Personal history of nicotine dependence; Z79.82 Long term (current) use of aspirin; Z79.899 Other long term (current) drug therapy; Z79.84 Long term (current) use of oral hypoglycemic drugs
CPT/HCPCS: 36415; 70450; 71045; 73502; 80048; 80053; 81003; 82550; 82962; 83735; 84484; 85025; 93005; 96361; 96365; 96366; 99285; A4217; A9270; J3480; J7040; G0378; J3535-GY

== ENCOUNTER 2019-05-03 16:34 | Emergency (ER) | payer MEDICAID ==
--- NOTE | 2019-05-03 17:26 | EDM.PDOC ---
ED HPI GENERAL MEDICAL PROBLEM - General Chief Complaint: Lower Extremity Injury/Pain Stated Complaint: RIGHT HIP AND LEG PAIN Time Seen by Provider: 05/03/19 17:14 Source of Information: Reports: Patient History Limitations: Reports: No Limitations - History of Present Illness INITIAL COMMENTS - FREE TEXT/NARRATIVE: HISTORY AND PHYSICAL: History of present illness: Patient is a 58-year-old male who presents to the ED today with concern of right hip and knee pain. Patient was seen in the ED on 04/30/19 and was admitted for hypokalemia. At that time his right hip had been x-rayed and the impression was no acute findings. Patient states that after discharge she continues to have hip and right knee pain. Patient states he cannot take ibuprofen as he was told he has issues with his kidneys. Patient states he has not had the hip and knee evaluated prior. Patient states the symptoms have been ongoing for a few months and he denies any trauma or injury. Patient denies any other symptoms or concerns at this time. Patient denies fever, chills, chest pain, shortness of breath, or cough. Denies headache, neck stiff ness, change in vision, syncope, or near syncope. Denies nausea, vomiting, abdominal pain, diarrhea, constipation, or dysuria. Has not noted any blood in urine or stool. Patient has been eating and drinking appropriately. Review of systems: As per history of present illness and below otherwise all systems reviewed and negative. Past medical history: As per history of present illness and as reviewed below otherwise noncontributory. Surgical history: As per history of present illness and as reviewed below otherwise noncontributory. Social history: See social history for further information Family history: As per history of present illness and as reviewed below otherwise noncontributory. Physical exam: General: Patient is alert, oriented, and in no acute distress. Patient sitting comfortably on exam table. HEENT: Atraumatic, normocephalic, pupils equal and reactive bilaterally, negative for conjunctival pallor or scleral icterus, mucous membranes moist, TMs normal bilaterally, throat clear, neck supple, nontender, trachea midline. No drooling or trismus noted. No meningeal signs. No hot potato voice noted. Lungs: Clear to auscultation, breath sounds equal bilaterally, chest nontender. Heart: S1S2, regular rate and rhythm without overt murmur Abdomen: Soft, nondistended, nontender. Negative for masses or hepatosplenomegaly. Negative for costovertebral tenderness. Pelvis: Stable nontender. Genitourinary: Deferred. Rectal: Deferred. Skin: Intact, warm, dry. No lesions or rashes noted. Extremities: Atraumatic, negative for cords or calf pain. Neurovascular unremarkable. Full ROM of complete spine without obvious deformity. Full ROM of bilateral lower extremities Neuro: Awake, alert, oriented. Cranial nerves II through XII unremarkable. Cerebellum unremarkable. Motor and sensory unremarkable throughout. Exam nonfocal. Notes: Discussed the importance of follow-up with a primary care provider. Voices understanding and is agreeable to plan of care. Denies any further questions or concerns at this time. Diagnostics: Knee XR, lumbar XR Therapeutics: Norflex Prescription: Flexeril Impression: Chronic right knee pain Chronic right hip pain Plan: 1. Rest, ice, elevate the affected area. You can apply ice and or heat 15 minutes on, 15 minutes off. 2. Tylenol as directed for pain management or discomfort. 3. Follow up with the primary care provider as discussed. Return to the ED as needed and as discussed. Definitive disposition and diagnosis as appropriate pending reevaluation and review of above. right knee Pain Score (Numeric/FACES): 8 - Related Data Allergies Allergy/AdvReac Type Severity Reaction Status Date / Time No Known Allergies Allergy Verified 05/03/19 16:50 Home Meds: Home Meds Acetaminophen 1,000 mg PO Q8H PRN 05/01/19 [History] Albuterol Sulfate [Proair Hfa] 2 puff INH Q6H PRN 05/01/19 [History] Aspirin [Adult Low Dose Aspirin EC] 81 mg PO DAILY 05/01/19 [History] Divalproex Sodium [Depakote] 05/01/19 [History] FLUoxetine HCl [Prozac] 20 mg PO BEDTIME 05/01/19 [History] Famotidine 20 mg PO BID 05/01/19 [History] Gabapentin [Neurontin] 600 mg PO BEDTIME 05/01/19 [History] Losartan [Cozaar] 100 mg PO DAILY 05/01/19 [History] Valbenazine Tosylate [Ingrezza] 80 mg PO BEDTIME 05/01/19 [History] amLODIPine Besylate [Norvasc] 10 mg PO DAILY 05/01/19 [History] atorvaSTATin [Lipitor] 40 mg PO DAILY 05/01/19 [History] hydrOXYzine HCl [hydrOXYzine] 25 mg PO TID PRN 05/01/19 [History] metFORMIN [Glucophage] 500 mg PO BIDMEALS 05/01/19 [History] risperiDONE [Risperdal] 05/01/19 [History] Potassium Chloride 20 meq PO DAILY #3 tab.er.prt 05/02/19 [Rx] Past Medical History HEENT History: Reports: Other (See Below) Other HEENT History: hypersenstive retinopathy Cardiovascular History: Reports: Hypertension Respiratory History: Reports: Asthma Gastrointestinal History: Reports: GERD Genitourinary History: Reports: Other (See Below) Other Genitourinary History: Chronic Kidney Disease Musculoskeletal History: Reports: Back Pain, Chronic, Other (See Below) Other Musculoskeletal History: Right hip pain, right knee apin Neurological History: Reports: Other (See Below) Other Neuro History: Tremor Psychiatric History: Reports: Bipolar Endocrine/Metabolic History: Reports: Diabetes, Type II, Obesity/BMI 30+ Hematologic History: Reports: Other (See Below) Other Hematologic History: Hyperlipidemia Immunologic History: Reports: None Oncologic (Cancer) History: Reports: None Dermatologic History: Reports: Other (See Below) Other Dermatologic History: pruirtis of skin - Infectious Disease History Infectious Disease History: Reports: None - Past Surgical History Head Surgeries/Procedures: Reports: None HEENT Surgical History: Reports: None Cardiovascular Surgical History: Reports: None Respiratory Surgical History: Reports: None GI Surgical History: Reports: None Male Surgical History: Reports: None Endocrine Surgical History: Reports: None Neurological Surgical History: Reports: None Musculoskeletal Surgical History: Reports: None Oncologic Surgical History: Reports: None Dermatological Surgical History: Reports: None Social & Family History - Family History Family Medical History: Noncontributory - Tobacco Use Smoking Status *Q: Former Smoker Used Tobacco, but Quit: Yes Month/Year Tobacco Last Used: 30 - Caffeine Use Caffeine Use: Reports: Soda - Recreational Drug Use Recreational Drug Use: No Review of Systems - Review of Systems Review Of Systems: ROS reveals no pertinent complaints other than HPI. ED EXAM, GENERAL - Physical Exam Exam: See Below (See dictation) Course - Vital Signs Last Recorded V/S: Last Vital Signs Temp 36.1 C 05/03/19 16:51 Pulse 72 05/03/19 16:51 Resp 18 05/03/19 16:51 BP 155/103 H 05/03/19 16:51 Pulse Ox 96 05/03/19 16:51 - Orders/Labs/Meds Meds: Medications Discontinued Medications Generic Name Dose Route Start Last Admin Trade Name Laquita PRN Reason Stop Dose Admin Orphenadrine Citrate 60 mg 05/03/19 17:26 05/03/19 17:57 Norflex IM 05/03/19 17:27 60 mg NOW STA Administration Departure - Departure Time of Disposition: 18:42 Disposition: Home, Self-Care 01 Clinical Impression: Chronic knee pain Qualifiers: Laterality: right Qualified Code(s): M25.561 - Pain in right knee; G89.29 - Other chronic pain Chronic hip pain Qualifiers: Laterality: right Qualified Code(s): M25.551 - Pain in right hip; G89.29 - Other chronic pain - Discharge Information Referrals: PCP,None [Primary Care Provider] - Forms: ED Department Discharge Additional Instructions: The following information is given to patients seen in the emergency department who are being discharged to home. This information is to outline your options for follow-up care. We provide all patients seen in our emergency department with a follow-up referral. The need for follow-up, as well as the timing and circumstances, are variable depending upon the specifics of your emergency department visit. If you don't have a primary care physician on staff, we will provide you with a referral. We always advise you to contact your personal physician following an emergency department visit to inform them of the circumstance of the visit and for follow-up with them and/or the need for any referrals to a consulting specialist. The emergency department will also refer you to a specialist when appropriate. This referral assures that you have the opportunity for follow-up care with a specialist. All of these measure are taken in an effort to provide you with optimal care, which includes your follow-up. Under all circumstances we always encourage you to contact your private physician who remains a resource for coordinating your care. When calling for follow-up care, please make the office aware that this follow-up is from your recent emergency room visit. If for any reason you are refused follow-up, please contact the [facility] Emergency Department at and asked to speak to the emergency department charge nurse. [facility] [address] [place] [address] [facility] [address] [place] [id number] 1. Rest, ice, elevate the affected area. You can apply ice and or heat 15 minutes on, 15 minutes off. 2. Tylenol as directed for pain management or discomfort. 3. Follow up with the primary care provider as discussed. Return to the ED as needed and as discussed.
--- NOTE | 2019-05-03 18:27 | CR ---
INDICATION: Knee pain. TECHNIQUE: AP, lateral and sunrise projections. FINDINGS: Mild tibiofemoral and patellofemoral osteoarthritic changes with joint space narrowing and marginal osteophytes. No acute fractures or dislocations identified. No significant joint effusion is seen. IMPRESSION: No acute osseous finding with mild osteoarthritis. Dictated by Bello Abebe MD @ May 03 2019 6:25PM Signed by Dr. Bello Abebe @ May 03 2019 6:26PM
--- NOTE | 2019-05-03 18:31 | CR ---
INDICATION: Back pain. TECHNIQUE: AP, lateral coned lateral projections. FINDINGS: Five [id number] lumbar vertebra present. Marginal osteophytes are seen at each level with disc space narrowing most prominent at the L4-5 and L5-S1 levels and to a lesser degree the L3-4 level. Facet osteoarthritic changes are seen. No acute compression fractures, spondylolysis or spondylolisthesis. Mild aortic calcification. IMPRESSION: Multilevel degenerative disc disease and facet arthrosis with no acute osseous finding. Dictated by Bello Abebe MD @ May 03 2019 6:28PM Signed by Dr. Bello Abebe @ May 03 2019 6:29PM
== END 2019-05-03 19:14 | disposition home or self-care (01) ==
LOC: MW.ED 16:34
DX: M25.551 Pain in right hip (principal); M25.561 Pain in right knee; G89.29 Other chronic pain; I12.9 Hypertensive chronic kidney disease with stage 1 through stage 4 chronic kidney disease, or unspecified chronic kidney disease; N18.9 Chronic kidney disease, unspecified; E11.22 Type 2 diabetes mellitus with diabetic chronic kidney disease; E66.9 Obesity, unspecified; Z79.82 Long term (current) use of aspirin; Z79.899 Other long term (current) drug therapy; Z79.84 Long term (current) use of oral hypoglycemic drugs; Z87.891 Personal history of nicotine dependence
CPT/HCPCS: 72100; 73562; 96372; 99283; J2360

== ENCOUNTER 2019-05-12 19:32 | Emergency (ER) | payer MEDICAID ==
--- NOTE | 2019-05-12 20:18 | EDM.PDOC ---
ED HPI GENERAL MEDICAL PROBLEM - General Chief Complaint: General Stated Complaint: DROWSY Time Seen by Provider: 05/12/19 20:17 Source of Information: Reports: Patient - History of Present Illness INITIAL COMMENTS - FREE TEXT/NARRATIVE: HISTORY AND PHYSICAL: History of present illness: [Patient presents with its as he has been quite sleepy over the last 24 hours sleeping all night and then most of today he states this is similar to his previous presentation with low potassium 5 finding which has been corrected is in no distress no fever nausea vomiting chills sweats no chest pain shortness breath headache dizziness palpitation no bowel or urine symptoms Is on Risperdal he has been stable on this dosing has not increased or decreased in some time he may follow with primary care for medication adjustment as this may be a source of his glucose levels have been fairly stable as well ] Review of systems: As per history of present illness and below otherwise all systems reviewed and negative. Past medical history: As per history of present illness and as reviewed below otherwise noncontributory. Surgical history: As per history of present illness and as reviewed below otherwise noncontributory. Social history: No reported history of drug or alcohol abuse. Family history: As per history of present illness and as reviewed below otherwise noncontributory. Physical exam: HEENT: Atraumatic, normocephalic, pupils reactive, negative for conjunctival pallor or scleral icterus, mucous membranes moist, throat clear, neck supple, nontender, trachea midline. Lungs: Clear to auscultation, breath sounds equal bilaterally, chest nontender. Heart: S1S2, regular, negative for clicks, rubs, or JVD. Abdomen: Soft, nondistended, nontender. Negative for masses or hepatosplenomegaly. Negative for costovertebral tenderness. Pelvis: Stable nontender. Genitourinary: Deferred. Rectal: Deferred. Extremities: Atraumatic, negative for cords or calf pain. Neurovascular unremarkable. Neuro: Awake, alert, oriented. Cranial nerves II through XII unremarkable. Cerebellum unremarkable. Motor and sensory unremarkable throughout. Exam nonfocal. Diagnostics: [BMP ] Therapeutics: [Continue current therapy] Impression: [History of hypokalemia Medical screening exam] Definitive disposition and diagnosis as appropriate pending reevaluation and review of above. - Related Data Allergies Allergy/AdvReac Type Severity Reaction Status Date / Time No Known Allergies Allergy Verified 05/12/19 20:08 Home Meds: Home Meds Acetaminophen 1,000 mg PO Q8H PRN 05/01/19 [History] Albuterol Sulfate [Proair Hfa] 2 puff INH Q6H PRN 05/01/19 [History] Aspirin [Adult Low Dose Aspirin EC] 81 mg PO DAILY 05/01/19 [History] Divalproex Sodium [Depakote] 500 mg PO DAILY 05/01/19 [History] FLUoxetine HCl [Prozac] 20 mg PO BEDTIME 05/01/19 [History] Famotidine 20 mg PO BID 05/01/19 [History] Gabapentin [Neurontin] 600 mg PO BEDTIME 05/01/19 [History] Losartan [Cozaar] 100 mg PO DAILY 05/01/19 [History] Valbenazine Tosylate [Ingrezza] 80 mg PO BEDTIME 05/01/19 [History] amLODIPine Besylate [Norvasc] 10 mg PO DAILY 05/01/19 [History] atorvaSTATin [Lipitor] 40 mg PO DAILY 05/01/19 [History] hydrOXYzine HCl [hydrOXYzine] 25 mg PO TID PRN 05/01/19 [History] metFORMIN [Glucophage] 500 mg PO BIDMEALS 05/01/19 [History] risperiDONE [Risperdal] 1 mg PO 05/01/19 [History] Potassium Chloride 20 meq PO DAILY #3 tab.er.prt 05/02/19 [Rx] Cyclobenzaprine [Flexeril] 10 mg PO TID PRN #10 tab 05/03/19 [Rx] Past Medical History HEENT History: Reports: Other (See Below) Other HEENT History: hypersenstive retinopathy Cardiovascular History: Reports: Hypertension Respiratory History: Reports: Asthma Gastrointestinal History: Reports: GERD Genitourinary History: Reports: Other (See Below) Other Genitourinary History: Chronic Kidney Disease Musculoskeletal History: Reports: Back Pain, Chronic, Other (See Below) Other Musculoskeletal History: Right hip pain, right knee apin Neurological History: Reports: Other (See Below) Other Neuro History: Tremor Psychiatric History: Reports: Bipolar Endocrine/Metabolic History: Reports: Diabetes, Type II, Obesity/BMI 30+ Hematologic History: Reports: Other (See Below) Other Hematologic History: Hyperlipidemia Immunologic History: Reports: None Oncologic (Cancer) History: Reports: None Dermatologic History: Reports: Other (See Below) Other Dermatologic History: pruirtis of skin - Infectious Disease History Infectious Disease History: Reports: None - Past Surgical History Head Surgeries/Procedures: Reports: None HEENT Surgical History: Reports: None Cardiovascular Surgical History: Reports: None Respiratory Surgical History: Reports: None GI Surgical History: Reports: None Male Surgical History: Reports: None Endocrine Surgical History: Reports: None Neurological Surgical History: Reports: None Musculoskeletal Surgical History: Reports: None Oncologic Surgical History: Reports: None Dermatological Surgical History: Reports: None Social & Family History - Family History Family Medical History: Noncontributory - Tobacco Use Smoking Status *Q: Never Smoker Second Hand Smoke Exposure: No - Caffeine Use Caffeine Use: Reports: None - Recreational Drug Use Recreational Drug Use: No ED ROS GENERAL - Review of Systems Review Of Systems: See Below ED EXAM, GENERAL - Physical Exam Exam: See Below Course - Vital Signs Last Recorded V/S: Last Vital Signs Temp 97.8 F 05/12/19 20:05 Pulse 73 05/12/19 20:05 Resp 20 05/12/19 20:05 BP 142/96 H 05/12/19 20:05 Pulse Ox 96 05/12/19 20:05 - Orders/Labs/Meds Labs: Laboratory Tests 05/12/19 Range/Units 20:24 Sodium 142 (136-148) mmol/L Potassium 3.4 L (3.5-5.1) mmol/L Chloride 106 (98-107) mmol/L Carbon Dioxide 27.8 (21.0-32.0) mmol/L BUN 10 (7.0-18.0) mg/dL Creatinine 1.2 (0.8-1.3) mg/dL Est Cr Clr Drug Dosing 81.17 mL/min Estimated GFR (MDRD) > 60.0 ml/min Glucose 144 H (74-106) mg/dL Calcium 8.5 (8.5-10.1) mg/dL Departure - Departure Time of Disposition: 21:05 Disposition: Home, Self-Care 01 Condition: Good Clinical Impression: Encounter for medical screening examination - Discharge Information Referrals: PCP,None [Primary Care Provider] - Forms: ED Department Discharge Additional Instructions: The following information is given to patients seen in the emergency department who are being discharged to home. This information is to outline your options for follow-up care. We provide all patients seen in our emergency department with a follow-up referral. The need for follow-up, as well as the timing and circumstances, are variable depending upon the specifics of your emergency department visit. If you don't have a primary care physician on staff, we will provide you with a referral. We always advise you to contact your personal physician following an emergency department visit to inform them of the circumstance of the visit and for follow-up with them and/or the need for any referrals to a consulting specialist. The emergency department will also refer you to a specialist when appropriate. This referral assures that you have the opportunity for follow-up care with a specialist. All of these measure are taken in an effort to provide you with optimal care, which includes your follow-up. Under all circumstances we always encourage you to contact your private physician who remains a resource for coordinating your care. When calling for follow-up care, please make the office aware that this follow-up is from your recent emergency room visit. If for any reason you are refused follow-up, please contact the [facility] emergency department at and asked to speak to the emergency department charge nurse.
[2019-05-12 20:52] LABS: CHLORIDE,CL 106 mmol/L (98-107); SODIUM,NA 142 mmol/L (136-148)
== END 2019-05-12 21:23 | disposition home or self-care (01) ==
LOC: MW.ED 19:32
DX: E87.6 Hypokalemia (principal); I12.9 Hypertensive chronic kidney disease with stage 1 through stage 4 chronic kidney disease, or unspecified chronic kidney disease; N18.9 Chronic kidney disease, unspecified; E11.22 Type 2 diabetes mellitus with diabetic chronic kidney disease; E66.9 Obesity, unspecified; E78.5 Hyperlipidemia, unspecified; J45.909 Unspecified asthma, uncomplicated; Z79.82 Long term (current) use of aspirin; Z79.84 Long term (current) use of oral hypoglycemic drugs; Z79.899 Other long term (current) drug therapy
CPT/HCPCS: 36415; 80048; 99282; 99284